=== PATIENT | male | born 1960 | race Two or more races ===

== ENCOUNTER 2017-10-25 00:19 | Emergency (ER) | payer OTHER ==
[~2017-10-25] VITALS: Ht 175.3 cm; Wt 77.1 kg
[2017-10-25 00:21] VITALS: BP 116/71
--- NOTE | 2017-10-25 00:25 | NUR ---
To bed 9 a 57 yo male patient bbra from home. per ems patient had an episode of dizziness after mucus plug was taken out successfully from his trach by . Upon arrival, patient is aaox3, nad noted. vss. breathing even and unlabored. Patient denies dizziness or any discomfort.
--- NOTE | 2017-10-25 01:01 | NUR ---
Rt at bedside teaching patient regarding tracheostomy care.
== END 2017-10-25 01:19 | disposition home or self-care (01) ==
LOC: ER 00:21
DX: R42 Dizziness and giddiness (principal); Z93.0 Tracheostomy status; I25.10 Atherosclerotic heart disease of native coronary artery without angina pectoris; J38.00 Paralysis of vocal cords and larynx, unspecified; Z95.0 Presence of cardiac pacemaker; Z95.810 Presence of automatic (implantable) cardiac defibrillator; Z86.74 Personal history of sudden cardiac arrest
CPT/HCPCS: A4606; Z7610